=== PATIENT | female | born 1995 | race American Indian/Alaskan Native ===

== ENCOUNTER 2020-02-21 15:51 | Emergency (ER) | payer SELFPAY ==
[2020-02-21 16:07] VITALS: BP 122/77
--- NOTE | 2020-02-21 16:51 | XRay Report ---
Right wrist-3 views Right hand-3 views INDICATION: Fall today with generalized wrist and hand pain. COMPARISON: None. IMPRESSION: Obliquely are noted fracture through the neck of the ring finger metacarpal with overlyi ng soft tissue swelling. No significant displacement or angulation. No significant DJD. Signer Name: Scott Hood MD Signed: 02/21/2020 4:46 PM Workstation Name: [id number]
--- NOTE | 2020-02-21 19:44 | Emergency Department Report ---
Upper Extremity - HPI Chief Complaint: Extremity Injury, Upper Stated Complaint: RT HAND PAIN Time Seen by Provider: 02/21/20 19:38 Upper Extremity: Right Hand Occurred When: Today Mechanism: Fall Symptoms: Yes Pain with Movement, Yes Swelling, Yes Bruising/Ecchymosis Other History: 24-year-old female presents emergency department complaining of a reported slip and fall landing on her right hand resulting in pain the lateral aspect of the dorsum of the hand. Ports no numbness or tingling. Pain is worse with palpation ED Review of Systems ROS: Stated complaint: RT HAND PAIN Other details as noted in HPI Comment: All other systems reviewed and negative ED Past Medical Hx - Past Medical History Previous Medical History?: No - Surgical History Past Surgical History?: No - Medications Home Medications: Home Medications Medication Instructions Recorded Confirmed Last Taken Type Acetaminophen/Codeine [Tylenol 1 tab PO Q6H PRN #14 tab 02/21/20 Unknown Rx /Codeine # 3 tab] Upper Extremity Exam - Exam General: Vital signs noted. No distress. Alert and acting appropriately. Head and Torso: No HEENT Abnormality, No Neck Tenderness, No Chest/Lungs Abnormality, No Abdominal Tenderness, No Back Tenderness Shoulder Exam: Yes Normal Range of Motion in Shoulder, No Shoulder Tenderness, No Clavicle Tenderness, No Shoulder Deformity, No AC Joint Tenderness Arm Exam: No Arm/Humerus Tenderness, No Arm Deformity Elbow: No Elbow Tenderness, No Normal Range of Motion in Elbow, No Elbow Deformity Forearm: No Forearm Tenderness, No Forearm Deformity, No Pain with Pronation, No Pain with Supination Wrist: Yes Normal ROM in Wrist, No Wrist Tenderness, No Wrist Deformity, No Snuffbox Tenderness, No Pain with Axial Thumb Compression Hand: Yes Hand Tenderness (Swelling and tenderness to pain in the area of the fourth metacarpal tenderness with palpation. No obvious deformity pulses 2+ capillary refills are brisk.), Yes Normal ROM in Digit(s), No Hand Deformity, No Digit Tenderness, No Digit(s) Deformity, No Tendon Dysfunction CMS Exam: No Broken Skin, No Normal Distal Pulses, No Normal Capillary Refill, No Normal Distal Sensation ED Course Vital Signs 02/21/20 16:05 Temperature 98.4 F Pulse Rate 90 Respiratory 16 Rate Blood Pressure 122/77 [Right] O2 Sat by Pulse 98 Oximetry - Procedure Description Procedures done: Right hand couple fracture placed in a volar splint neurovascularly intact no complications ED Medical Decision Making - Radiology Data Radiology results: report reviewed [facility] [address] [place] [address] XRay Report Signed Patient: CECELIA MENDOZA MR#: [id number] : 1995 Acct:[id number] Age/Sex: 24 / F ADM Date: 02/21/20 Loc: ED Attending Dr: Ordering Physician: TRINH LITTLE MD Date of Service: 02/21/20 Procedure(s): XR hand 3+V RT Accession Number(s): [id number] cc: ED MD SIDNEY Fluoro Time In Minutes: Right wrist-3 views Right hand-3 views INDICATION: Fall today with generalized wrist and hand pain. COMPARISON: None. IMPRESSION: Obliquely are noted fracture through the neck of the ring finger metacarpal with overlying soft tissue swelling. No significant displacement or angulation. No significant DJD. Signer Name: Scott Hood MD Signed: 02/21/2020 4:46 PM Workstation Name: [id number] Transcribed By: JW Dictated By: Scott Hood MD Electronically Authenticated By: Scott Hood MD Signed Date/Time: 02/21/201645 DD/ 45 TD/TT: - Medical Decision Making 24-year-old female status post reported slip and fall resulting in a hand fracture was splinted in the emergency department neurovascularly intact. We offered a test but patient did refuse and she really did not want to know. She reports no numbness or tingling pain is dull and and and throbbing she understands the importance of following up with orthopedic for definitive treatment and and splinting when she returns home to [place] Critical care attestation.: If time is entered above; I have spent that time in minutes in the direct care of this critically ill patient, excluding procedure time. ED Disposition Clinical Impression: Metacarpal bone fracture Disposition: DC-01 TO HOME OR SELFCARE Is pt being admited?: No Does the pt Need Aspirin: No Condition: Stable Instructions: Hand Fracture (ED) Additional Instructions: Please be sure to follow-up with your orthopedic when you return to home in [place] Prescriptions: Acetaminophen/Codeine [Tylenol /Codeine # 3 tab] 1 tab PO Q6H PRN #14 tab PRN Reason: hand pain Referrals: PRIMARY CARE, [Primary Care Provider] - 3-5 Days
[2020-02-21] MEDS ORDERED: HYDROcodone/ACETAMINOPHEN 5-325 MG TAB PO STA (19:45)
== END 2020-02-21 20:15 | disposition home or self-care (01) ==
LOC: ED 15:51
DX: S62.309A Unspecified fracture of unspecified metacarpal bone, initial encounter for closed fracture (principal); Z79.899 Other long term (current) drug therapy; W01.0XXA Fall on same level from slipping, tripping and stumbling without subsequent striking against object, initial encounter; Y93.89 Activity, other specified; Y92.89 Other specified places as the place of occurrence of the external cause; Y99.8 Other external cause status